=== PATIENT | male | born 1970 | race Caucasian/White ===

== ENCOUNTER 2022-12-14 13:24 | Inpatient (IN) | payer OTHER ==
[2022-12-14 14:03] VITALS: BMI 22.8
[2022-12-14] MEDS ORDERED: NALOXONE HCL (KLOXXADO) 8 MG SPRAY NS PRN (15:05)
[2022-12-14] MEDS ORDERED: MAG HYDROX/AL HYDROX/SIMETH 30 ML UNIT-DOSE CUP PO PRN (15:05)
[2022-12-14] MEDS ORDERED: IBUPROFEN 400 MG TABLET (FP) PO PRN (15:05)
[2022-12-14] MEDS ORDERED: DICYCLOMINE HCL 10 MG CAPSULE PO PRN (15:05)
[2022-12-14] MEDS ORDERED: LOPERAMIDE HCL 2 MG CAPSULE PO PRN (15:05)
[2022-12-14] MEDS ORDERED: POLYETHYLENE GLYCOL (HEALTHYLAX) 3350 17 GM PACKET PO PRN (15:05)
[2022-12-14] MEDS ORDERED: MAGNESIUM HYDROX 2400MG/30ML ORAL SUSPENSION 30 ML CUP PO PRN (15:05)
[2022-12-14] MEDS ORDERED: NICOTINE 21 MG/24 HOURS TOPICAL PATCH TD PRN (15:05)
[2022-12-14] MEDS ORDERED: BISMUTH SUBSALICYLATE 262 MG/15 ML BTL PO PRN (15:05)
[2022-12-14] MEDS ORDERED: ACETAMINOPHEN 325 MG TABLET (FP) PO PRN ×2 (15:05)
[2022-12-14] MEDS ORDERED: BENZOCAINE/MENTHOL (CHLORASEPTIC ) LOZENGE MM PRN (15:05)
[2022-12-14] MEDS ORDERED: NICOTINE POLACRILEX 4 MG GUM BUC PRN (15:05)
[2022-12-14] MEDS ORDERED: ONDANSETRON *ODT* 4 MG TABLET SL PRN (15:05)
[2022-12-14] MEDS ORDERED: PRENATAL VITAMINS W/ FOLIC ACID TABLET (FP) PO SCH (15:15)
[2022-12-14] MEDS: MELATONIN 5 MG TABLETS PO SCH (22:46)
[2022-12-14] MEDS: THIAMINE HCL 100 MG TABLET (FP) PO SCH (22:46)
[2022-12-14] MEDS: TOLNAFTATE 1% CREAM 15 GM TUBE TP SCH (22:47)
[2022-12-15] MEDS ORDERED: diazePAM 5 MG TABLET PO PRN (10:18)
[2022-12-15] MEDS: DIVALPROEX SODIUM 500 MG TABLET E.C. PO SCH ×2 (10:44→22:33)
[2022-12-15] MEDS: METHOCARBAMOL 500 MG TABLET PO PRN (10:44)
[2022-12-15] MEDS: PRENATAL VITAMINS W/ FOLIC ACID TABLET (FP) PO SCH (10:44)
[2022-12-15] MEDS: BENZTROPINE MESYLATE 1 MG TABLET PO SCH ×2 (10:45→22:33)
[2022-12-15] MEDS: TOLNAFTATE 1% CREAM 15 GM TUBE TP SCH ×2 (10:45→22:34)
[2022-12-15] MEDS: diazePAM 5 MG TABLET PO SCH ×3 (10:45→22:33)
[2022-12-15] MEDS: NICOTINE 10 MG CARTRIDGE (INHALER) IH PRN (10:48)
[2022-12-15 11:40] LABS: CALCIUM 8.7 mg/dL (8.5-10.1)
[2022-12-15 11:41] LABS: ALBUMIN 3.5 g/dl (3.4-5.0); BLOOD UREA NITROGEN 19.6 mg/dL (7-18)
[2022-12-15 11:44] LABS: CREATININE 0.8 mg/dL (0.55-1.3)
[2022-12-15 11:45] LABS: BILIRUBIN,TOTAL 0.3 mg/dL (0.2-1)
[2022-12-15 11:46] LABS: TOT PROT 6.7 g/dl (6.4-8.2)
[2022-12-15] MEDS: THIAMINE HCL 100 MG TABLET (FP) PO SCH (22:33)
[2022-12-15] MEDS: MELATONIN 5 MG TABLETS PO SCH (22:34)
[2022-12-16] MEDS: diazePAM 5 MG TABLET PO SCH ×4 (05:25→22:26)
[2022-12-16] MEDS: BENZTROPINE MESYLATE 1 MG TABLET PO SCH ×2 (10:12→22:26)
[2022-12-16] MEDS: DIVALPROEX SODIUM 500 MG TABLET E.C. PO SCH ×2 (10:12→22:26)
[2022-12-16] MEDS: METHOCARBAMOL 500 MG TABLET PO PRN (10:12)
[2022-12-16] MEDS: TOLNAFTATE 1% CREAM 15 GM TUBE TP SCH ×2 (10:12→22:46)
[2022-12-16] MEDS: PRENATAL VITAMINS W/ FOLIC ACID TABLET (FP) PO SCH (10:14)
[2022-12-16 13:37] LABS: HEMATOCRIT 39.2 % (35.4-49); HEMOGLOBIN 13.2 GM/dL (11.7-16.9); MCH 32.6 pg (25.7-33.7); MCHC 33.6 g/dl (32.0-35.9); MEAN PLT VOLUME 8.5 fl (7.5-11.1); PLATELET COUNT 250 10^3/uL (134-434); RBC 4.04 M/mm3 (4.00-5.60); RDW 14.8 % (11.9-15.9); WHITE BLOOD COUNT 6.8 K/mm3 (4.0-10.0)
[2022-12-16] MEDS: THIAMINE HCL 100 MG TABLET (FP) PO SCH (22:26)
[2022-12-16] MEDS: MELATONIN 5 MG TABLETS PO SCH (22:46)
[2022-12-17] MEDS: diazePAM 5 MG TABLET PO SCH ×3 (05:08→22:26)
[2022-12-17] MEDS: DIVALPROEX SODIUM 500 MG TABLET E.C. PO SCH ×2 (09:42→22:25)
[2022-12-17] MEDS: BENZTROPINE MESYLATE 1 MG TABLET PO SCH ×2 (09:42→22:26)
[2022-12-17] MEDS: hydrOXYzine PAMOATE 25 MG CAPSULE (FP) PO PRN (09:43)
[2022-12-17] MEDS: METHOCARBAMOL 500 MG TABLET PO PRN (09:43)
[2022-12-17] MEDS: PRENATAL VITAMINS W/ FOLIC ACID TABLET (FP) PO SCH (09:43)
[2022-12-17] MEDS: LACTULOSE 20 GM/30 ML UDC (FOR ORAL USE ONLY) PO SCH ×4 (09:44→22:28)
[2022-12-17] MEDS: TOLNAFTATE 1% CREAM 15 GM TUBE TP SCH ×2 (09:45→22:26)
[2022-12-17] MEDS: THIAMINE HCL 100 MG TABLET (FP) PO SCH (22:25)
[2022-12-17] MEDS: MELATONIN 5 MG TABLETS PO SCH (22:27)
[2022-12-18] MEDS: IBUPROFEN 600 MG TABLET (FP) PO PRN (02:04)
[2022-12-18] MEDS: diazePAM 5 MG TABLET PO SCH ×2 (05:14→17:25)
[2022-12-18] MEDS: PRENATAL VITAMINS W/ FOLIC ACID TABLET (FP) PO SCH (09:57)
[2022-12-18] MEDS: LACTULOSE 20 GM/30 ML UDC (FOR ORAL USE ONLY) PO SCH ×4 (09:57→22:30)
[2022-12-18] MEDS: BENZTROPINE MESYLATE 1 MG TABLET PO SCH ×2 (09:58→22:30)
[2022-12-18] MEDS: hydrOXYzine PAMOATE 25 MG CAPSULE (FP) PO PRN (09:58)
[2022-12-18] MEDS: TOLNAFTATE 1% CREAM 15 GM TUBE TP SCH ×2 (09:58→22:31)
[2022-12-18] MEDS: DIVALPROEX SODIUM 500 MG TABLET E.C. PO SCH ×2 (09:58→22:30)
[2022-12-18] MEDS: NICOTINE 10 MG CARTRIDGE (INHALER) IH PRN (17:25)
[2022-12-18] MEDS: MELATONIN 5 MG TABLETS PO SCH (22:30)
[2022-12-18] MEDS: THIAMINE HCL 100 MG TABLET (FP) PO SCH (22:30)
[2022-12-19] MEDS: IBUPROFEN 600 MG TABLET (FP) PO PRN (03:11)
[2022-12-19] MEDS: METHOCARBAMOL 500 MG TABLET PO PRN (03:11)
[2022-12-19] MEDS ORDERED: diazePAM 5 MG TABLET PO ONE (06:00)
[2022-12-19 10:03] VITALS: BP 115/60; PULSE 76; RESP 16; TEMP 98.1
[2022-12-19] MEDS: BENZTROPINE MESYLATE 1 MG TABLET PO SCH (10:18)
[2022-12-19] MEDS: DIVALPROEX SODIUM 500 MG TABLET E.C. PO SCH (10:18)
[2022-12-19] MEDS: PRENATAL VITAMINS W/ FOLIC ACID TABLET (FP) PO SCH (10:18)
[2022-12-19] MEDS: TOLNAFTATE 1% CREAM 15 GM TUBE TP SCH (10:19)
[2022-12-19] MEDS: LACTULOSE 20 GM/30 ML UDC (FOR ORAL USE ONLY) PO SCH (10:19)
== END 2022-12-19 10:45 | disposition home or self-care (01) | DRG 897 ==
LOC: YASAS 13:24 → UNDOADMIN 15:49 → Y6N 15:49 → UNDODISIN 12-19 10:45
PROVIDERS: ADMIT Allergy & Immunology; ATTEND Surgery
PROC: HZ2ZZZZ Detoxification Services for Substance Abuse Treatment (ICD-10-PCS; principal; 2022-12-14)
DX: F10.230 Alcohol dependence with withdrawal, uncomplicated (principal); F14.20 Cocaine dependence, uncomplicated; F31.81 Bipolar II disorder; F12.20 Cannabis dependence, uncomplicated; F17.210 Nicotine dependence, cigarettes, uncomplicated; G35 Multiple sclerosis; R79.89 Other specified abnormal findings of blood chemistry; Z62.810 Personal history of physical and sexual abuse in childhood; Z88.2 Allergy status to sulfonamides
CPT/HCPCS: 36415; 80053; 80164; 82140; 83036; 85027; 86780; 87811; 93005; 93010; C9803-CS; U0003; U0005